=== PATIENT | female | born 1935 | race Caucasian/White ===

== ENCOUNTER 2020-02-13 15:26 | Emergency (ER) | payer MEDICARE, BC ==
[2020-02-13] MEDS ORDERED: Ketorolac 30 MG/ML SDV IM ONE (15:46)
[2020-02-13 15:47] VITALS: BP 159/73; PULSE 80
--- NOTE | 2020-02-13 15:50 | EDM.PDOC ---
ED HPI GENERAL MEDICAL PROBLEM - General Chief Complaint: Back Pain or Injury Stated Complaint: BACK PAIN Time Seen by Provider: 02/13/20 15:37 Source of Information: Reports: Patient History Limitations: Reports: No Limitations - History of Present Illness INITIAL COMMENTS - FREE TEXT/NARRATIVE: HISTORY AND PHYSICAL: History of present illness: Patient is an 84-year-old female who presents to the emergency room with complaints of left low back pain. She was sitting on a short stool while outside gardening when the stool broke resulting in her falling backward. She denies hitting her head or having any loss of consciousness. Since falling, she has had some muscular pain to the left low back region. "I can get up and walk around with no problem it is just when I am engaging my back muscles that it hurts". Patient denies any fever, chills, headache, change in vision, syncope or near syncope. Denies any chest pain, back pain, shortness of breath or cough. Denies any abdominal pain, nausea, vomiting, diarrhea, constipation or dysuria. Has not noted any blood in urine or stool. Patient has been eating and drinking appropriately. Review of systems: As per history of present illness and below otherwise all systems reviewed and negative. Past medical history: As per history of present illness and as reviewed below otherwise noncontributory. Surgical history: As per history of present illness and as reviewed below otherwise noncontributory. Social history: See social history for further information Family history: As per history of present illness and as reviewed below otherwise noncontributory. Physical exam: General: Well-developed and well-nourished 84-year-old female. Alert and oriented. Nontoxic-appearing and in no acute distress. HEENT: Atraumatic, normocephalic, pupils equal and reactive bilaterally, negative for conjunctival pallor or scleral icterus, mucous membranes moist, TMs normal bilaterally, throat clear, neck supple, nontender, trachea midline. No drooling or trismus noted. No meningeal signs. No hot potato voice noted. Lungs: Clear to auscultation, breath sounds equal bilaterally, chest nontender. Heart: S1S2, regular rate and rhythm without overt murmur Abdomen: Soft, nondistended, nontender. Negative for masses or hepatosplenomegaly. Negative for costovertebral tenderness. Pelvis: Stable nontender. C-spine/Back: No pinpoint vertebral tenderness upon palpation. No crepitus, step -offs or obvious deformities. Patient is ambulatory into the emergency room without difficulty or deficit. Paraspinous muscular pain to left lumbar region. She is able to rock back on heels and walk on toes. Denies any urinary or fecal incontinence. Denies any numbness, tingling or saddle paresthesia. Skin: Intact, warm, dry. No lesions or rashes noted. Extremities: Atraumatic, moves all extremities per self without difficulty or deficits, negative for cords or calf pain. Neurovascular unremarkable. Neuro: Awake, alert, oriented. Cranial nerves II through XII unremarkable. Cerebellum unremarkable. Motor and sensory unremarkable throughout. Exam nonfocal. Notes: X-ray shows mild degenerative changes and minimal scoliosis. She does feel improved after the injections. Medication and Supportive care measures were reviewed and discussed. Signs and symptoms that would prompt her to return to the emergency room were reviewed and discussed. She voices understanding and is agreeable to plan of care. Denies any further questions or concerns at this time. Diagnostics: Lumbar x-ray Therapeutics: Toradol, Norflex Prescription: Flexeril Impression: Fall Lumbago Plan: 1. The medication you received today does cause drowsiness, so do not drive for the remaining day 2. When resting please lay on a flat firm surface. Limit your immobility to prevent muscle stiffness. Get up to ambulate/move around/gentle stretching multiple times throughout the day. May alternate heat and ice to the painful areas 3. Tylenol and/or Ibuprofen as needed for back pain. Otherwise take the prescribed Flexeril as directed. Flexeril as a muscle relaxant, this medication may cause drowsiness a do not take it will driving her needing to be functioning outside of the house. 4. Please follow-up with your primary care provider as we discussed. Return to the ED as needed and as discussed. Definitive disposition and diagnosis as appropriate pending reevaluation and review of above. lower back Pain Score (Numeric/FACES): 8 - Related Data Allergies Allergy/AdvReac Type Severity Reaction Status Date / Time No Known Allergies Allergy Verified 02/13/20 15:46 Home Meds: Home Meds Levothyroxine [Levothroid] 137 mcg PO BEDTIME 01/04/14 [History] Tetrahydroz/Dext 70/Peg 400/Pv [Eye Drops] 15 ml EYEBOTH BEDTIME 01/04/14 [ History] Carboxymethylcellulos/Glycerin [Refresh Optive Eye Drops] 1 drop EYEBOTH QAM 02/08 [History] Aspirin 1 tab PO DAILY 12/18/15 [History] atorvaSTATin [Lipitor] 12/18/15 [History] Calcium Carb/Vitamin D3/Vit K1 [Calcium + D Soft Chewable Tab] 1 tab PO BEDTIME 02/13/20 [History] Lutein/Minerals/Vit A,C & E [Ocuvite] 1 tab PO DAILY 02/13/20 [History] Multivitamin [Multivitamins] 1 tab PO DAILY 02/13/20 [History] Past Medical History Cardiovascular History: Reports: High Cholesterol Endocrine/Metabolic History: Reports: Hypothyroidism Social & Family History - Family History Family Medical History: Noncontributory ED ROS GENERAL - Review of Systems Review Of Systems: Comprehensive ROS is negative, except as noted in HPI. ED EXAM,LOWER BACK PAIN/INJURY - Physical Exam Exam: See Below (See dictation) Course - Vital Signs Last Recorded V/S: Last Vital Signs Temp 97.7 F 02/13/20 15:42 Pulse 80 02/13/20 15:42 Resp 16 02/13/20 15:42 BP 159/73 H 02/13/20 15:42 Pulse Ox 93 L 02/13/20 15:42 - Orders/Labs/Meds Orders: Active Orders 24 hr Category Date Time Status UA RFX EFRAIN AND CULT IF INDIC [URIN] Stat Lab 02/13/20 15:38 Ordered Meds: Medications Discontinued Medications Generic Name Dose Route Start Last Admin Trade Name Fran PRN Reason Stop Dose Admin Ketorolac Tromethamine 30 mg 02/13/20 15:46 02/13/20 15:57 Toradol IM 02/13/20 15:47 30 mg ONETIME ONE Administration Orphenadrine Citrate 60 mg 02/13/20 15:46 02/13/20 15:58 Norflex IM 02/13/20 15:47 60 mg ONETIME ONE Administration Departure - Departure Time of Disposition: 17:00 Disposition: Home, Self-Care 01 Clinical Impression: Fall Qualifiers: Encounter type: initial encounter Qualified Code(s): W19.XXXA - Unspecified fall, initial encounter Lumbago Qualifiers: Chronicity: acute Back pain laterality: left Sciatica presence: without sciatica Qualified Code(s): M54.5 - Low back pain - Discharge Information Instructions: Acute Back Pain, Adult Referrals: Mason uQezada MD [Primary Care Provider] - Forms: ED Department Discharge Additional Instructions: The following information is given to patients seen in the emergency department who are being discharged to home. This information is to outline your options for follow-up care. We provide all patients seen in our emergency department with a follow-up referral. The need for follow-up, as well as the timing and circumstances, are variable depending upon the specifics of your emergency department visit. If you don't have a primary care physician on staff, we will provide you with a referral. We always advise you to contact your personal physician following an emergency department visit to inform them of the circumstance of the visit and for follow-up with them and/or the need for any referrals to a consulting specialist. The emergency department will also refer you to a specialist when appropriate. This referral assures that you have the opportunity for follow-up care with a specialist. All of these measure are taken in an effort to provide you with optimal care, which includes your follow-up. Under all circumstances we always encourage you to contact your private physician who remains a resource for coordinating your care. When calling for follow-up care, please make the office aware that this follow-up is from your recent emergency room visit. If for any reason you are refused follow-up, please contact the [facility] Emergency Department at and asked to speak to the emergency department charge nurse. [facility] [address] [place] [address] [id number] [address] [id number] 1. The medication you received today does cause drowsiness, so do not drive for the remaining day 2. When resting please lay on a flat firm surface. Limit your immobility to prevent muscle stiffness. Get up to ambulate/move around/gentle stretching multiple times throughout the day. May alternate heat and ice to the painful areas 3. Tylenol and/or Ibuprofen as needed for back pain. Otherwise take the prescribed Flexeril as directed. Flexeril as a muscle relaxant, this medication may cause drowsiness a do not take it will driving her needing to be functioning outside of the house. 4. Please follow-up with your primary care provider as we discussed. Return to the ED as needed and as discussed. Sepsis Event Note - Evaluation Sepsis Screening Result: No Definite Risk - Focused Exam Vital Signs: Vital Signs Temp Pulse Resp BP Pulse Ox 02/13/20 15:42 97.7 F 80 16 159/73 H 93 L Date Exam was Performed: 02/13/20 Time Exam was Performed: 16:58 - My Orders Last 24 Hours: My Active Orders 02/13/20 15:38 UA RFX EFRAIN AND CULT IF INDIC [URIN] Stat - Assessment/Plan Last 24 Hours: My Active Orders 02/13/20 15:38 UA RFX EFRAIN AND CULT IF INDIC [URIN] Stat
--- NOTE | 2020-02-13 16:53 | CR ---
Lumbar spine: AP, lateral and coned-down lateral view centered to the lumbosacral junction were obtained. Mild disc space narrowing at T11-12 and at L1-2. Mild disc space narrowing is noted at L3-4. Vertebral body heights are maintained. Scattered endplate osteophytes are noted. Minimal scoliosis is noted. Sacroiliac joints are within normal limits. Mild vascular calcification is noted. Impression: 1. Mild degenerative change and minimal scoliosis. Diagnostic code #2 This report was dictated in MDT
== END 2020-02-13 17:16 | disposition home or self-care (01) ==
LOC: MW.ED 15:26
DX: M54.5 Low back pain (principal); E78.00 Pure hypercholesterolemia, unspecified; E03.9 Hypothyroidism, unspecified; Z79.899 Other long term (current) drug therapy; W17.89XA Other fall from one level to another, initial encounter; Y93.H2 Activity, gardening and landscaping
CPT/HCPCS: 72100; 96372; 99283; J1885; J2360

== ENCOUNTER 2021-03-11 05:29 | Emergency (ER) | payer MEDICARE, BC ==
--- NOTE | 2021-03-11 05:56 | EDM.PDOC ---
ED HPI GENERAL MEDICAL PROBLEM - General Chief Complaint: Headache Stated Complaint: EXTREME PAIN ON LEFT SIDE OF HEAD Time Seen by Provider: 03/11/21 05:54 Source of Information: Reports: Patient History Limitations: Reports: No Limitations - History of Present Illness INITIAL COMMENTS - FREE TEXT/NARRATIVE: 85-year-old female past medical history TIA, chronic lower back pain, hypothyroidism presents for headache. Patient first noted symptoms yesterday and had difficulty sleeping. She states the pain is on the left lateral aspect of her head above her ear without radiation. She denies any associated dizziness, one-sided body weakness, slurred speech, facial droop. No nausea or vomiting. The pain seems to come in paroxysms lasting for a few seconds and were initially occurring several times an hour but after taking Motrin this morning seem to be decreasing in severity and frequency. No vision changes, no fevers - Related Data Allergies Allergy/AdvReac Type Severity Reaction Status Date / Time No Known Allergies Allergy Verified 02/13/20 15:46 Home Meds: Home Meds Levothyroxine [Levothroid] 137 mcg PO BEDTIME 01/04/14 [History] Tetrahydroz/Dext 70/Peg 400/Pv [Eye Drops] 15 ml EYEBOTH BEDTIME 01/04/14 [History] Carboxymethylcellulos/Glycerin [Refresh Optive Eye Drops] 1 drop EYEBOTH QAM 01/30/14 [History] Aspirin 1 tab PO DAILY 12/18/15 [History] atorvaSTATin [Lipitor] 12/18/15 [History] Calcium Carb/Vitamin D3/Vit K1 [Calcium + D Soft Chewable Tab] 1 tab PO BEDTIME 02/13/20 [History] Cyclobenzaprine [Flexeril] 5 mg PO TID PRN #15 tab 02/13/20 [Rx] Lutein/Minerals/Vit A,C & E [Ocuvite] 1 tab PO DAILY 02/13/20 [History] Multivitamin [Multivitamins] 1 tab PO DAILY 02/13/20 [History] Past Medical History Cardiovascular History: Reports: High Cholesterol Genitourinary History: Reports: Urinary Incontinence 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 ED EXAM, GENERAL - Physical Exam Exam: See Below Exam Limited By: No Limitations General Appearance: Alert, WD/WN, No Apparent Distress Eye Exam: Bilateral Eye: EOMI, PERRL Ears: Normal External Exam, Normal Canal, Hearing Grossly Normal, Normal TMs Nose: Normal Inspection Throat/Mouth: Normal Voice, No Airway Compromise Head: Atraumatic, Normocephalic Neck: Normal Inspection Respiratory/Chest: No Respiratory Distress, Lungs Clear, Normal Breath Sounds, No Accessory Muscle Use Cardiovascular: Normal Peripheral Pulses, Regular Rate, Rhythm Extremities: Normal Inspection Neurological: Alert, Oriented, CN II-XII Intact, Normal Cognition, Normal Gait, No Motor/Sensory Deficits Psychiatric: Normal Affect, Normal Mood Skin Exam: Warm, Dry, Intact, Normal Color Course - Vital Signs Last Recorded V/S: Last Vital Signs Temp 97.4 F 03/11/21 05:48 Pulse 72 03/11/21 05:48 Resp 20 03/11/21 05:48 BP 152/70 H 03/11/21 05:48 Pulse Ox 100 03/11/21 05:48 - Orders/Labs/Meds Orders: Active Orders 24 hr Category Date Time Status Sodium Chloride 0.9% [Saline Flush] Med 03/11/21 06:02 Active 10 ml FLUSH ASDIRECTED PRN Sodium Chloride 0.9% [Saline Flush] Med 03/11/21 06:02 Active 2.5 ml FLUSH ASDIRECTED PRN Saline Lock Insert [OM.PC] Stat Oth 03/11/21 06:03 Ordered Medication Orders Sodium Chloride (Sodium Chloride 0.9% 10 Ml Syringe) 10 ml FLUSH ASDIRECTED PRN PRN Reason: Keep Vein Open Sodium Chloride (Sodium Chloride 0.9% 2.5 Ml Syringe) 2.5 ml FLUSH ASDIRECTED PRN PRN Reason: Keep Vein Open Labs: Laboratory Tests 03/11/21 03/11/21 Range/Units 06:14 06:14 WBC 8.01 (4.0-11.0) K/uL RBC 4.37 (4.30-5.90) M/uL Hgb 14.2 (12.0-16.0) g/dL Hct 42.9 (36.0-46.0) % MCV 98.2 H (80.0-98.0) fL MCH 32.5 H (27.0-32.0) pg MCHC 33.1 (31.0-37.0) g/dL RDW Std Deviation 47.6 (28.0-62.0) fl RDW Coeff of Mayuri 13 (11.0-15.0) % Plt Count 202 (150-400) K/uL MPV 10.80 (7.40-12.00) fL Neut % (Auto) 39.4 L (48.0-80.0) % Lymph % (Auto) 50.3 H (16.0-40.0) % Glenn % (Auto) 7.7 (0.0-15.0) % Eos % (Auto) 2.2 (0.0-7.0) % Baso % (Auto) 0.4 (0.0-1.5) % Neut # (Auto) 3.2 (1.4-5.7) K/uL Lymph # (Auto) 4.0 H (0.6-2.4) K/uL Glenn # (Auto) 0.6 (0.0-0.8) K/uL Eos # (Auto) 0.2 (0.0-0.7) K/uL Baso # (Auto) 0.0 (0.0-0.1) K/uL Nucleated RBC % 0.0 /100WBC Nucleated RBCs # 0 K/uL Sodium 141 (136-145) mmol/L Potassium 4.3 (3.5-5.1) mmol/L Chloride 106 (98-107) mmol/L Carbon Dioxide 27.0 (21.0-32.0) mmol/L BUN 16 (7.0-18.0) mg/dL Creatinine 0.8 (0.6-1.0) mg/dL Est Cr Clr Drug Dosing TNP Estimated GFR (MDRD) > 60.0 ml/min Glucose 121 H (74-106) mg/dL Calcium 8.6 (8.5-10.1) mg/dL Total Bilirubin 0.4 (0.2-1.0) mg/dL AST 21 (15-37) IU/L ALT 32 (14-63) IU/L Alkaline Phosphatase 71 (46-116) U/L C-Reactive Protein <0.20 (0.00-0.90) mg/dL Total Protein 7.2 (6.4-8.2) g/dL Albumin 3.7 (3.4-5.0) g/dL Globulin 3.5 (2.6-4.0) g/dL Albumin/Globulin Ratio 1.1 (0.9-1.6) Meds: Medications Generic Name Dose Route Start Last Admin Trade Name Fran PRN Reason Stop Dose Admin Sodium Chloride 10 ml 03/11/21 06:02 Sodium Chloride 0.9% 10 Ml Syringe FLUSH ASDIRECTED PRN Keep Vein Open Sodium Chloride 2.5 ml 03/11/21 06:02 Sodium Chloride 0.9% 2.5 Ml Syringe FLUSH ASDIRECTED PRN Keep Vein Open Discontinued Medications Generic Name Dose Route Start Last Admin Trade Name Freq PRN Reason Stop Dose Admin Acetaminophen/Butalbital/Caffeine 1 tab 03/11/21 06:03 03/11/21 06:08 Acetaminophen/Butalbital/Caffeine 325-50-40 Mg Tab PO 03/11/21 06:04 1 tab ONETIME ONE Administration Diphenhydramine HCl 50 mg 03/11/21 06:02 03/11/21 06:11 Diphenhydramine 50 Mg/Ml Sdv IVPUSH 03/11/21 06:03 Not Given ONETIME ONE Diphenhydramine HCl 25 mg 03/11/21 06:04 03/11/21 06:12 Diphenhydramine 50 Mg/Ml Sdv IVPUSH 03/11/21 06:05 25 mg ONETIME ONE Administration Sodium Chloride 500 mls @ 999 mls/hr 03/11/21 06:02 03/11/21 06:13 Normal Saline IV 03/11/21 06:32 999 mls/hr .Bolus ONE Administration Metoclopramide HCl 10 mg 03/11/21 06:02 03/11/21 06:09 Metoclopramide 10 Mg/2 Ml Sdv IVPUSH 03/11/21 06:03 10 mg ONETIME ONE Administration - Re-Assessments/Exams Free Text/Narrative Re-Assessment/Exam: 03/11/21 06:09 We will get basic labs including CRP. We will get a head CT. Will treat symptomatically with Reglan, Benadryl, Fioricet, IV fluid bolus. 03/11/21 06:53 CT imaging unremarkable. CRP is negative lowering suspicion for temporal arteritis. Will discharge patient with headache medication and refer her for neurology. Departure - Departure Time of Disposition: 06:54 Disposition: Home, Self-Care 01 Condition: Good Clinical Impression: Headache Qualifiers: Headache type: unspecified Headache chronicity pattern: acute headache Intractability: not intractable Qualified Code(s): R51.9 - Headache, unspecified - Discharge Information Instructions: General Headache Without Cause Referrals: Mason Quezada MD [Primary Care Provider] - Forms: ED Department Discharge Additional Instructions: Your labs were unremarkable. Your head CT was unremarkable. Your CRP testing which is a screening tool for temporal arteritis was negative. And really like you to follow-up with your primary care physician and consider follow-up with a neurologist if symptoms are persistent or recurrent. Information for neurology is provided below. If your headache becomes intolerable, you have changes in your vision, you have confusion or difficulty with word finding, or one-sided body weakness then you should come back to the emergency department for reassessment immediately. If you start to notice a rash in or around your ear or tracking up the side of your face then you should also come back for reassessment as we cannot rule out an early shingles infection today. [facility] Neurology Professional [address], [address] [place] [id number] The following information is given to patients seen in the emergency department who are being discharged to home. This information is to outline your options for follow-up care. We provide all patients seen in our emergency department with a follow-up referral. The need for follow-up, as well as the timing and circumstances, are variable depending upon the specifics of your emergency department visit. If you don't have a primary care physician on staff, we will provide you with a referral. We always advise you to contact your personal physician following an emergency department visit to inform them of the circumstance of the visit and for follow-up with them and/or the need for any referrals to a consulting specialist. The emergency department will also refer you to a specialist when appropriate. This referral assures that you have the opportunity for follow-up care with a specialist. All of these measure are taken in an effort to provide you with optimal care, which includes your follow-up. Under all circumstances we always encourage you to contact your private physician who remains a resource for coordinating your care. When calling for follow-up care, please make the office aware that this follow-up is from your recent emergency room visit. If for any reason you are refused follow-up, please contact the [facility] Emergency Department at and asked to speak to the emergency department charge nurse. Please follow up with your primary care physician. If you do not have a primary care physician, see below: [facility] Primary [facility] [address] [place] [id number] [facility] [address] [place] [address] [facility] [address] [place] [id number] Sepsis Event Note (ED) - Evaluation Sepsis Screening Result: No Definite Risk - Focused Exam Vital Signs: Vital Signs Temp Pulse Resp BP Pulse Ox 03/11/21 05:48 97.4 F 72 20 152/70 H 100 - My Orders Last 24 Hours: My Active Orders 03/11/21 06:02 Sodium Chloride 0.9% [Saline Flush] 10 ml FLUSH ASDIRECTED PRN Sodium Chloride 0.9% [Saline Flush] 2.5 ml FLUSH ASDIRECTED PRN 03/11/21 06:03 Saline Lock Insert [OM.PC] Stat - Assessment/Plan Last 24 Hours: My Active Orders 03/11/21 06:02 Sodium Chloride 0.9% [Saline Flush] 10 ml FLUSH ASDIRECTED PRN Sodium Chloride 0.9% [Saline Flush] 2.5 ml FLUSH ASDIRECTED PRN 03/11/21 06:03 Saline Lock Insert [OM.PC] Stat
[2021-03-11] MEDS ORDERED: Metoclopramide 10 MG/2 ML SDV IVPUSH ONE (06:02)
[2021-03-11] MEDS ORDERED: Sodium Chloride 0.9% 2.5 ML Syringe FLUSH PRN (06:02)
[2021-03-11] MEDS ORDERED: Sodium Chloride 0.9% 500 ML IV ONE (06:02)
[2021-03-11] MEDS ORDERED: Sodium Chloride 0.9% 10 ML Syringe FLUSH PRN (06:02)
[2021-03-11] MEDS ORDERED: diphenhydrAMINE 50 MG/ML SDV IVPUSH ONE ×2 (06:02→06:04)
[2021-03-11] MEDS ORDERED: Acetaminophen/Butalbital/Caffeine 325-50-40 MG Tab PO ONE (06:03)
--- NOTE | 2021-03-11 06:38 | CT ---
INDICATION: Left-sided headache TECHNIQUE: Head CT without contrast. COMPARISON: January 31, 2014 FINDINGS: CSF spaces: Within normal limits for age. Brain parenchyma and extra-axial spaces: There are nonspecific low attenuation white matter changes consistent with chronic microvascular disease. No sign of mass, hemorrhage, or midline shift. Skull base and calvarium: The visualized paranasal sinuses and mastoid air cells demonstrate no acute or significant findings. The visualized orbits are grossly unremarkable. No skull fractures. IMPRESSION: No acute findings and no significant changes from the prior exam. No specific finding to explain left-sided headache. Please note that all CT scans at this facility use dose modulation, iterative reconstruction, and/or weight-based dosing when appropriate to reduce radiation dose to as low as reasonably achievable. Dictated by Felice Cotton MD @ 03/11/2021 6:36:[address] Felice Cotton @ Mar 11 2021 6:36AM
[2021-03-11 06:40] LABS: BLOOD UREA NITROGEN,BUN 16 mg/dL (7.0-18.0); CHLORIDE,CL 106 mmol/L (98-107); GLUCOSE RANDOM 121 mg/dL (74-106); POTASSIUM,K 4.3 mmol/L (3.5-5.1); SODIUM,NA 141 mmol/L (136-145)
[2021-03-11 07:03] VITALS: BP 166/81; PULSE 66
== END 2021-03-11 07:05 | disposition home or self-care (01) ==
LOC: MW.ED 05:29
DX: R51.9 Headache, unspecified (principal); E78.00 Pure hypercholesterolemia, unspecified; Z79.82 Long term (current) use of aspirin; E03.9 Hypothyroidism, unspecified; Z79.899 Other long term (current) drug therapy
CPT/HCPCS: 36415; 70450; 80053; 85025; 86140; 96374; 96375; 99284; A9270; J1200; J2765; J7030; 99283

== ENCOUNTER 2023-04-19 13:24 | Emergency (ER) | payer MEDICARE, BC ==
[2023-04-19] MEDS ORDERED: Lidocaine 4% 1 each Patch TOP SCH (15:30)
[2023-04-19 17:41] VITALS: BP 105/71; PULSE 73
== END 2023-04-19 17:34 | disposition home or self-care (01) ==
LOC: MW.ED 13:24
DX: S93.401A Sprain of unspecified ligament of right ankle, initial encounter (principal); E78.00 Pure hypercholesterolemia, unspecified; J44.9 Chronic obstructive pulmonary disease, unspecified; E03.9 Hypothyroidism, unspecified; Z79.899 Other long term (current) drug therapy; Z79.82 Long term (current) use of aspirin; X50.1XXA Overexertion from prolonged static or awkward postures, initial encounter
CPT/HCPCS: 73610; 73630; 99283; A9270

== ENCOUNTER 2023-05-31 09:07 | Emergency (ER) | payer MEDICARE, BC ==
[2023-05-31] MEDS ORDERED: Ondansetron 4 MG/2 ML SDV ONE (09:35)
[2023-05-31] MEDS ORDERED: Ondansetron 4 MG/2 ML SDV IVPUSH ONE (09:35)
[2023-05-31] MEDS ORDERED: propofoL 100 ML ONE (09:42)
[2023-05-31] MEDS ORDERED: fentaNYL 50 MCG/ML SDV IVPUSH PRN (09:52)
[2023-05-31] MEDS: propofoL 100 ML IV SCH ×3 (09:53→14:03)
[2023-05-31] MEDS ORDERED: Etomidate 2 MG/ML 10 ML SDV IVPUSH ONE (09:53)
[2023-05-31] MEDS ORDERED: Rocuronium 50 MG/5 ML Vial IV ONE (09:54)
[2023-05-31] MEDS ORDERED: niCARdipine/Normal Saline 20 MG/200 ML BAG IV SCH (10:45)
[2023-05-31] MEDS ORDERED: Iopamidol 755 MG/ML 500 ML Multipack Bottle IVPUSH STA (10:51)
[2023-05-31] MEDS ORDERED: Propofol 200 MG/20 ML SDV IVPUSH ONE ×4 (11:00→12:50)
[2023-05-31 11:06] LABS: APPEARANCE,URINE CLEAR; BILIRUBIN,URINE NEGATIVE (NEGATIVE); COLOR,URINE STRAW; GLUCOSE,URINE 100 mg/dL (NEGATIVE); KETONES,URINE NEGATIVE (NEGATIVE); LEUKOCYTE ESTERASE,URINE NEGATIVE (NEGATIVE); NITRITE,URINE NEGATIVE (NEGATIVE); OCCULT BLOOD,URINE NEGATIVE (NEGATIVE); PROTEIN,URINE 100 mg/dL (NEGATIVE); UROBILINOGEN,URINE 0.2 EU/dL (<2.0)
[2023-05-31] MEDS ORDERED: fentaNYL 50 MCG/ML SDV IVPUSH ONE ×3 (11:20→12:42)
[2023-05-31] MEDS ORDERED: fentaNYL 50 MCG/ML SDV ONE ×2 (11:21→11:49)
[2023-05-31 11:24] LABS: HEMATOCRIT 41.8 % (36.0-46.0); HEMOGLOBIN 13.9 g/dL (12.0-16.0); MEAN CORPUSCULAR HEMOGLOBIN 32.2 pg (27.0-32.0); MEAN CORPUSCULAR HGB CONC 33.3 g/dL (31.0-37.0); MEAN CORPUSCULAR VOLUME 96.8 fL (80.0-98.0); NRBC ABSOLUTE 0 K/uL; PLATELET COUNT,PLT 200 K/uL (150-400); RED BLOOD CELL COUNT 4.32 M/uL (4.30-5.90); WHITE BLOOD CELL COUNT,WBC 10.12 K/uL (4.0-11.0)
[2023-05-31 11:37] LABS: INR 1.02 (0.86-1.11); PTT,PARTIAL THROMBOPLSTIN TIME 23.4 SEC (23.9-30.7)
[2023-05-31 11:41] LABS: BACTERIA,URINE NOT SEEN (NEGATIVE); EPITHELIAL CELLS,URINE NOT SEEN (NONE-FEW); RBC,URINE 0-1 (0-2/HPF); WBC,URINE 0-1 (0-5/HPF)
[2023-05-31] MEDS ORDERED: Norepinephrine Bit/D5W Premix 250 ML IV SCH (11:45)
[2023-05-31 11:46] LABS: A/G RATIO 1.2 (0.9-1.6); ALBUMIN 3.7 g/dL (3.4-5.0); BILIRUBIN TOTAL 0.7 mg/dL (0.2-1.0); CALCIUM 8.8 mg/dL (8.5-10.1); CARBON DIOXIDE,CO2 24.6 mmol/L (21.0-32.0); CREATININE 0.7 mg/dL (0.6-1.0); POTASSIUM,K 3.4 mmol/L (3.5-5.1); PROTEIN TOTAL,TP 6.9 g/dL (6.4-8.2)
[2023-05-31] MEDS ORDERED: Midazolam 1 MG/ML 2 ML SDV ONE (11:49)
[2023-05-31] MEDS ORDERED: Norepinephrine Bit/D5W Premix 250 ML ONE (11:55)
[2023-05-31] MEDS ORDERED: Midazolam 1 MG/ML 2 ML SDV IVPUSH ONE (11:59)
[2023-05-31 12:13] LABS: BASOPHILS ABSOLUTE MAN 0.1 (0.0-0.1); BASOPHILS PERCENT MAN 1 % (0.0-1.5); EOSINOPHILS ABSOLUTE MAN 0.3 (0.0-0.7); EOSINOPHILS PERCENT MAN 3 % (0.0-7.0); LYMPHOCYTES ABSOLUTE MAN 5.9 (0.6-2.4); LYMPHOCYTES PERCENT MAN 58 % (16.0-40.0); MONOCYTES ABSOLUTE MAN 0.6 (0.0-0.8); MONOCYTES PERCENT MAN 6 % (0.0-15.0); REACTIVE LYMPHOCYTES FEW; SEG NEUTROPHILS ABSOLUTE MAN 3.2 (1.4-5.7); SEG NEUTROPHILS PERCENT MAN 32 % (48.0-80.0); SMUDGE CELLS FEW
[2023-05-31 13:48] VITALS: BP 138/56; PULSE 86
== END 2023-05-31 14:00 ==
LOC: MW.ED 09:07
DX: I60.9 Nontraumatic subarachnoid hemorrhage, unspecified (principal); E78.00 Pure hypercholesterolemia, unspecified; J44.9 Chronic obstructive pulmonary disease, unspecified; E03.9 Hypothyroidism, unspecified; I10 Essential (primary) hypertension; Z79.82 Long term (current) use of aspirin; Z79.899 Other long term (current) drug therapy; Z20.822 Contact with and (suspected) exposure to COVID-19
CPT/HCPCS: 31500; 36415; 70450; 70496; 70498; 71045; 72125; 80053; 81001; 84484; 85025; 85610; 85730; 93005; 96365; 96366; 96368; 96375; 96376; 99291; 99292; J2250; J2405; J2704; J3010; Q9967; U0002; 93010; J3490

== ENCOUNTER 2023-07-19 13:28 | Emergency (ER) | payer MEDICARE, BC ==
[2023-07-19] MEDS ORDERED: Sodium Chloride 0.9% 10 ML Syringe FLUSH PRN (13:35)
[2023-07-19] MEDS ORDERED: Sodium Chloride 0.9% 2.5 ML Syringe FLUSH PRN (13:35)
[2023-07-19 14:21] LABS: BASE EXCESS VENOUS 2.3 (-2.0-3.0); BICARBONATE,VENOUS 28 mEq/L (23-28); PCO2 VENOUS 46 mmHG (41-51); PH,VENOUS 7.39 (7.31-7.41)
[2023-07-19 14:22] LABS: BASOPHILS ABSOLUTE AUTO 0.03 K/uL (0.00-0.20); BASOPHILS PERCENT AUTO 0.3 % (0.0-1.0); EOSINOPHILS ABSOLUTE AUTO 0.06 K/uL (0.00-0.45); EOSINOPHILS PERCENT AUTO 0.7 % (0.0-6.0); HEMATOCRIT 33.9 % (37.0-47.0); HEMOGLOBIN 11.5 g/dL (12.0-16.0); IMMATURE GRAN ABSOLUTE AUTO 0.02 K/uL (0.00-0.05); IMMATURE GRAN PERCENT AUTO 0.2 % (0.0-0.4); LYMPHOCYTES ABSOLUTE AUTO 3.39 K/uL (1.00-4.80); LYMPHOCYTES PERCENT AUTO 37.1 % (24.0-44.0); MEAN CORPUSCULAR HEMOGLOBIN 32.9 pg (28.0-32.0); MEAN CORPUSCULAR HGB CONC 33.9 g/dL (32.0-36.0); MEAN CORPUSCULAR VOLUME 96.9 fL (83.0-99.0); MEAN PLATELET VOLUME 9.7 fL (9.4-12.3); MONOCYTES ABSOLUTE AUTO 0.75 K/uL (0.00-0.80); MONOCYTES PERCENT AUTO 8.2 % (0.0-8.0); NEUTROPHILS ABSOLUTE AUTO 4.89 K/uL (1.80-7.70); NEUTROPHILS PERCENT AUTO 53.5 % (41.0-71.0); PLATELET COUNT,PLT 204 K/uL (150-400); PO2 VENOUS < 30 mmHG; WHITE BLOOD CELL COUNT,WBC 9.14 K/uL (3.9-11.3)
[2023-07-19 14:39] LABS: CORONAVIRUS COVID-19 NAA NEGATIVE (NEGATIVE); INFLUENZA A NAA NEGATIVE (NEGATIVE); INFLUENZA B NAA NEGATIVE (NEGATIVE)
[2023-07-19 14:44] LABS: A/G RATIO 0.9 (0.9-1.6); ALANINE AMINOTRANSFERASE,ALT 39 IU/L (14-63); ALKALINE PHOSPHATASE 104 U/L (46-116); ASPARTATE AMNIOTRANSFERASE,AST 25 IU/L (15-37); BILIRUBIN TOTAL 0.8 mg/dL (0.2-1.0); BLOOD UREA NITROGEN,BUN 11 mg/dL (7.0-18.0); CALCIUM 8.8 mg/dL (8.5-10.1); CARBON DIOXIDE,CO2 28.1 mmol/L (21.0-32.0); CHLORIDE,CL 105 mmol/L (98-107); CREATININE 0.7 mg/dL (0.6-1.0); GLUCOSE RANDOM 201 mg/dL (74-106); POTASSIUM,K 3.3 mmol/L (3.5-5.1); PROTEIN TOTAL,TP 6.4 g/dL (6.4-8.2); SODIUM,NA 141 mmol/L (136-145)
[2023-07-19 14:51] LABS: ESTIMATED GFR 84 mL/min (>60)
[2023-07-19] MEDS ORDERED: Iopamidol 755 MG/ML 500 ML Multipack Bottle IVPUSH STA (18:07)
[2023-07-19 20:41] LABS: APPEARANCE,URINE SLT CLOUDY; BILIRUBIN,URINE NEGATIVE (NEGATIVE); COLOR,URINE YELLOW; GLUCOSE,URINE NEGATIVE (NEGATIVE); KETONES,URINE NEGATIVE (NEGATIVE); LEUKOCYTE ESTERASE,URINE SMALL (NEGATIVE); NITRITE,URINE POSITIVE (NEGATIVE); OCCULT BLOOD,URINE NEGATIVE (NEGATIVE); PROTEIN,URINE NEGATIVE (NEGATIVE); UROBILINOGEN,URINE 0.2 EU/dL (<2.0)
[2023-07-19] MEDS ORDERED: Heparin Sodium/0.45% NaCl 500 ML IV SCH (20:45)
[2023-07-19] MEDS ORDERED: Heparin Sodium 5,000 Units/ML Vial IVPUSH STA (20:45)
[2023-07-19 21:03] VITALS: BP 132/61; PULSE 96
[2023-07-19 21:09] LABS: BACTERIA,URINE 2+ (NEGATIVE); CALCIUM OXALATE CRYSTALS,URINE OCCASIONAL (NEGATIVE); EPITHELIAL CELLS,URINE OCCASIONAL (NONE-FEW); RBC,URINE 0-1 (0-2/HPF)
== END 2023-07-19 22:30 ==
LOC: MW.ED 13:28
DX: I26.99 Other pulmonary embolism without acute cor pulmonale (principal); I10 Essential (primary) hypertension; E78.00 Pure hypercholesterolemia, unspecified; J44.9 Chronic obstructive pulmonary disease, unspecified; E03.9 Hypothyroidism, unspecified; Z20.822 Contact with and (suspected) exposure to COVID-19; Z79.82 Long term (current) use of aspirin; Z79.899 Other long term (current) drug therapy
CPT/HCPCS: 0240U; 36415; 70450; 71045; 71275; 80053; 81001; 82803; 83880; 84484; 85025; 85379; 87086; 93005; 96365; 99285; J1644; J3490; Q9967; 87088; 87186; 93010; 99291

== ENCOUNTER 2023-11-06 04:36 | Emergency (ER) | payer MEDICARE, BC ==
[2023-11-06] MEDS: Sodium Chloride 0.9% 2.5 ML Syringe FLUSH PRN (04:52)
[2023-11-06] MEDS: Sodium Chloride 0.9% 10 ML Syringe FLUSH PRN (04:52)
[2023-11-06 05:00] LABS: BASOPHILS ABSOLUTE AUTO 0.03 K/uL (0.00-0.20); BASOPHILS PERCENT AUTO 0.4 % (0.0-1.0); EOSINOPHILS ABSOLUTE AUTO 0.16 K/uL (0.00-0.45); EOSINOPHILS PERCENT AUTO 2.1 % (0.0-6.0); HEMATOCRIT 38.7 % (37.0-47.0); HEMOGLOBIN 13.1 g/dL (12.0-16.0); IMMATURE GRAN ABSOLUTE AUTO 0.01 K/uL (0.00-0.05); IMMATURE GRAN PERCENT AUTO 0.1 % (0.0-0.4); LYMPHOCYTES ABSOLUTE AUTO 4.02 K/uL (1.00-4.80); LYMPHOCYTES PERCENT AUTO 53.5 % (24.0-44.0); MEAN CORPUSCULAR HEMOGLOBIN 31.3 pg (28.0-32.0); MEAN CORPUSCULAR HGB CONC 33.9 g/dL (32.0-36.0); MEAN CORPUSCULAR VOLUME 92.4 fL (83.0-99.0); MEAN PLATELET VOLUME 10.6 fL (9.4-12.3); MONOCYTES ABSOLUTE AUTO 0.58 K/uL (0.00-0.80); MONOCYTES PERCENT AUTO 7.7 % (0.0-8.0); NEUTROPHILS ABSOLUTE AUTO 2.72 K/uL (1.80-7.70); NEUTROPHILS PERCENT AUTO 36.2 % (41.0-71.0); PLATELET COUNT,PLT 202 K/uL (150-400); RED BLOOD CELL COUNT 4.19 M/uL (4.10-5.30); WHITE BLOOD CELL COUNT,WBC 7.52 K/uL (3.9-11.3)
[2023-11-06 05:20] LABS: ALBUMIN 3.4 g/dL (3.4-5.0); BILIRUBIN TOTAL 0.4 mg/dL (0.2-1.0); CALCIUM 9.3 mg/dL (8.5-10.1); CARBON DIOXIDE,CO2 21.1 mmol/L (21.0-32.0); CREATININE 0.9 mg/dL (0.6-1.0); EST CRCL DRUG DOSING (CG) 41.23 mL/min; PROTEIN TOTAL,TP 6.7 g/dL (6.4-8.2)
[2023-11-06] MEDS: Meclizine 25 MG Tab PO ONE (06:44)
[2023-11-06 08:11] LABS: INR 1.07 (0.86-1.11)
[2023-11-06 08:36] LABS: APPEARANCE,URINE CLEAR; BILIRUBIN,URINE NEGATIVE (NEGATIVE); COLOR,URINE YELLOW; GLUCOSE,URINE NEGATIVE (NEGATIVE); KETONES,URINE NEGATIVE (NEGATIVE); LEUKOCYTE ESTERASE,URINE TRACE (NEGATIVE); NITRITE,URINE NEGATIVE (NEGATIVE); OCCULT BLOOD,URINE NEGATIVE (NEGATIVE); PROTEIN,URINE NEGATIVE (NEGATIVE); UROBILINOGEN,URINE 0.2 EU/dL (<2.0)
[2023-11-06 08:45] LABS: BACTERIA,URINE RARE (NEGATIVE); EPITHELIAL CELLS,URINE RARE (NONE-FEW); MUCUS,URINE LIGHT (NONE-MOD); RBC,URINE NONE SEEN (0-2/HPF); WBC,URINE 0-2 (0-5/HPF)
[2023-11-06] MEDS: Ondansetron 4 MG/2 ML SDV IVPUSH ONE (08:47)
[2023-11-06] MEDS: Sodium Chloride 0.9% 1,000 ML IV STA (08:48)
[2023-11-06] MEDS: Iopamidol 755 MG/ML 500 ML Multipack Bottle IVPUSH ONE (09:10)
[2023-11-06 13:36] VITALS: BP 148/75; PULSE 68
== END 2023-11-06 13:36 | disposition home or self-care (01) ==
LOC: MW.ED 04:36
DX: R42 Dizziness and giddiness (principal); I10 Essential (primary) hypertension; E78.00 Pure hypercholesterolemia, unspecified; J44.9 Chronic obstructive pulmonary disease, unspecified; Z79.899 Other long term (current) drug therapy; Z79.82 Long term (current) use of aspirin
CPT/HCPCS: 36415; 70450; 70496; 70498; 80053; 81001; 84484; 85025; 85610; 96374; 99284; A9270; J2405; J3490; J7030; Q9967; 93010

== ENCOUNTER 2023-11-10 14:48 | Emergency (ER) | payer MEDICARE, BC ==
[2023-11-10 16:17] LABS: APPEARANCE,URINE SLT CLOUDY; BILIRUBIN,URINE NEGATIVE (NEGATIVE); COLOR,URINE YELLOW; GLUCOSE,URINE NEGATIVE (NEGATIVE); KETONES,URINE NEGATIVE (NEGATIVE); LEUKOCYTE ESTERASE,URINE SMALL (NEGATIVE); NITRITE,URINE NEGATIVE (NEGATIVE); OCCULT BLOOD,URINE NEGATIVE (NEGATIVE); PH,URINE 6.5 (5.0-8.0); PROTEIN,URINE NEGATIVE (NEGATIVE); UROBILINOGEN,URINE 0.2 EU/dL (<2.0)
[2023-11-10 16:27] LABS: BASOPHILS ABSOLUTE AUTO 0.03 K/uL (0.00-0.20); BASOPHILS PERCENT AUTO 0.4 % (0.0-1.0); EOSINOPHILS ABSOLUTE AUTO 0.19 K/uL (0.00-0.45); EOSINOPHILS PERCENT AUTO 2.3 % (0.0-6.0); HEMATOCRIT 38.8 % (37.0-47.0); HEMOGLOBIN 12.9 g/dL (12.0-16.0); IMMATURE GRAN ABSOLUTE AUTO 0.01 K/uL (0.00-0.05); IMMATURE GRAN PERCENT AUTO 0.1 % (0.0-0.4); LYMPHOCYTES ABSOLUTE AUTO 3.59 K/uL (1.00-4.80); LYMPHOCYTES PERCENT AUTO 43.7 % (24.0-44.0); MEAN CORPUSCULAR HEMOGLOBIN 31.5 pg (28.0-32.0); MEAN CORPUSCULAR HGB CONC 33.2 g/dL (32.0-36.0); MEAN CORPUSCULAR VOLUME 94.6 fL (83.0-99.0); MEAN PLATELET VOLUME 10.3 fL (9.4-12.3); MONOCYTES ABSOLUTE AUTO 0.64 K/uL (0.00-0.80); MONOCYTES PERCENT AUTO 7.8 % (0.0-8.0); NEUTROPHILS ABSOLUTE AUTO 3.75 K/uL (1.80-7.70); NEUTROPHILS PERCENT AUTO 45.7 % (41.0-71.0); PLATELET COUNT,PLT 171 K/uL (150-400); WHITE BLOOD CELL COUNT,WBC 8.21 K/uL (3.9-11.3)
[2023-11-10 16:27] LABS: RBC,URINE 0-1 (0-2/HPF)
[2023-11-10 16:28] LABS: BACTERIA,URINE FEW (NEGATIVE); EPITHELIAL CELLS,URINE MANY (NONE-FEW); WBC,URINE 15-20 (0-5/HPF)
[2023-11-10] MEDS: Sodium Chloride 0.9% 1,000 ML IV ONE (16:44)
[2023-11-10] MEDS: Meclizine 25 MG Tab PO ONE (16:44)
[2023-11-10 17:10] LABS: ALBUMIN 3.4 g/dL (3.4-5.0); BILIRUBIN TOTAL 0.4 mg/dL (0.2-1.0); CALCIUM 9.2 mg/dL (8.5-10.1); CARBON DIOXIDE,CO2 24.9 mmol/L (21.0-32.0); CREATININE 0.8 mg/dL (0.6-1.0); EST CRCL DRUG DOSING (CG) 42.78 mL/min; POTASSIUM,K 3.8 mmol/L (3.5-5.1); PROTEIN TOTAL,TP 6.7 g/dL (6.4-8.2); TSH ULTRASENSITIVE 0.12 uIU/mL (0.36-3.74)
[2023-11-10 17:25] LABS: BILIRUBIN,URINE NEGATIVE (NEGATIVE); COLOR,URINE YELLOW; GLUCOSE,URINE NEGATIVE (NEGATIVE); KETONES,URINE NEGATIVE (NEGATIVE); LEUKOCYTE ESTERASE,URINE SMALL (NEGATIVE); NITRITE,URINE NEGATIVE (NEGATIVE); OCCULT BLOOD,URINE NEGATIVE (NEGATIVE); PH,URINE 6.5 (5.0-8.0); PROTEIN,URINE NEGATIVE (NEGATIVE); UROBILINOGEN,URINE 0.2 EU/dL (<2.0)
[2023-11-10 17:26] LABS: APPEARANCE,URINE SLT CLOUDY
[2023-11-10 17:31] LABS: T4 FREE 1.07 ng/dL (0.76-1.46)
[2023-11-10 17:42] LABS: CORONAVIRUS COVID-19 NAA NEGATIVE (NEGATIVE); INFLUENZA A NAA NEGATIVE (NEGATIVE); INFLUENZA B NAA NEGATIVE (NEGATIVE); RESPIRATORY SYNCYTIAL VIR NAA NEGATIVE (NEGATIVE)
[2023-11-10 18:17] LABS: BACTERIA,URINE FEW (NEGATIVE); EPITHELIAL CELLS,URINE FEW (NONE-FEW); RBC,URINE 0-1 (0-2/HPF)
[2023-11-10] MEDS: cefTRIAXone 1 GM in Sodium Chloride 0.9% 50 ML IV ONE (18:51)
[2023-11-10 20:29] VITALS: BP 125/73; PULSE 87
== END 2023-11-10 20:29 | disposition home or self-care (01) ==
LOC: MW.ED 14:48
DX: R42 Dizziness and giddiness (principal); R00.2 Palpitations; N39.0 Urinary tract infection, site not specified; I10 Essential (primary) hypertension; E78.00 Pure hypercholesterolemia, unspecified; J44.9 Chronic obstructive pulmonary disease, unspecified; Z79.82 Long term (current) use of aspirin; Z79.899 Other long term (current) drug therapy
CPT/HCPCS: 0241U; 36415; 71045; 80053; 81001; 84439; 84443; 84484; 85025; 87086; 93005; 93246; 96361; 96365; 99285; A9270; J0696; J3490; J7030; 93010; 99283

== ENCOUNTER 2024-08-19 11:40 | Emergency (ER) | payer MEDICARE, BC ==
[2024-08-19 12:37] LABS: BASOPHILS ABSOLUTE AUTO 0.03 K/uL (0.00-0.20); BASOPHILS PERCENT AUTO 0.4 % (0.0-1.0); EOSINOPHILS ABSOLUTE AUTO 0.09 K/uL (0.00-0.45); EOSINOPHILS PERCENT AUTO 1.1 % (0.0-6.0); HEMATOCRIT 40.6 % (37.0-47.0); HEMOGLOBIN 13.6 g/dL (12.0-16.0); IMMATURE GRAN ABSOLUTE AUTO 0.03 K/uL (0.00-0.05); IMMATURE GRAN PERCENT AUTO 0.4 % (0.0-0.4); LYMPHOCYTES ABSOLUTE AUTO 3.56 K/uL (1.00-4.80); LYMPHOCYTES PERCENT AUTO 44.2 % (24.0-44.0); MEAN CORPUSCULAR HEMOGLOBIN 32.3 pg (28.0-32.0); MEAN CORPUSCULAR HGB CONC 33.5 g/dL (32.0-36.0); MEAN CORPUSCULAR VOLUME 96.4 fL (83.0-99.0); MEAN PLATELET VOLUME 9.8 fL (9.4-12.3); MONOCYTES ABSOLUTE AUTO 0.76 K/uL (0.00-0.80); MONOCYTES PERCENT AUTO 9.4 % (0.0-8.0); NEUTROPHILS ABSOLUTE AUTO 3.59 K/uL (1.80-7.70); NEUTROPHILS PERCENT AUTO 44.5 % (41.0-71.0); PLATELET COUNT,PLT 235 K/uL (150-400); RED BLOOD CELL COUNT 4.21 M/uL (4.10-5.30); WHITE BLOOD CELL COUNT,WBC 8.06 K/uL (3.9-11.3)
[2024-08-19 12:38] LABS: APPEARANCE,URINE SLT CLOUDY; BILIRUBIN,URINE NEGATIVE (NEGATIVE); COLOR,URINE YELLOW; GLUCOSE,URINE NEGATIVE (NEGATIVE); KETONES,URINE NEGATIVE (NEGATIVE); LEUKOCYTE ESTERASE,URINE NEGATIVE (NEGATIVE); NITRITE,URINE POSITIVE (NEGATIVE); OCCULT BLOOD,URINE NEGATIVE (NEGATIVE); PROTEIN,URINE NEGATIVE (NEGATIVE); UROBILINOGEN,URINE 0.2 EU/dL (<2.0)
[2024-08-19 12:42] LABS: BACTERIA,URINE 3+ (NEGATIVE); MUCUS,URINE NOT SEEN (NONE-MOD); RBC,URINE 0-1 (0-2/HPF); SQUAMOUS EPITHELIAL CELLS,UR MANY; WBC,URINE 0-2 (0-5/HPF)
[2024-08-19 14:00] LABS: A/G RATIO 1.1 (0.9-1.6); ALANINE AMINOTRANSFERASE,ALT 31 IU/L (14-63); ALBUMIN 3.5 g/dL (3.4-5.0); ALKALINE PHOSPHATASE 72 U/L (46-116); ASPARTATE AMNIOTRANSFERASE,AST 18 IU/L (15-37); BILIRUBIN TOTAL 0.7 mg/dL (0.2-1.0); BLOOD UREA NITROGEN,BUN 19 mg/dL (7.0-18.0); CALCIUM 8.9 mg/dL (8.5-10.1); CARBON DIOXIDE,CO2 24.4 mmol/L (21.0-32.0); CHLORIDE,CL 108 mmol/L (98-107); CREATININE 0.9 mg/dL (0.6-1.0); EST CRCL DRUG DOSING (CG) 40.45 mL/min; GLUCOSE RANDOM 100 mg/dL (74-106); POTASSIUM,K 4.2 mmol/L (3.5-5.1); PRO B-TYPE NATRIUR PEPT,BNPPRO 84 pg/mL (0-450); PROTEIN TOTAL,TP 6.6 g/dL (6.4-8.2); SODIUM,NA 141 mmol/L (136-145)
[2024-08-19 14:03] LABS: ESTIMATED GFR 61 mL/min (>60)
[2024-08-19] MEDS: Iopamidol 755 MG/ML 500 ML Multipack Bottle IVPUSH STA (14:53)
[2024-08-19] MEDS: cefTRIAXone 2 GM in Sodium Chloride 0.9% 50 ML IV ONE (15:30)
[2024-08-19 16:30] VITALS: BP 144/58; PULSE 60
== END 2024-08-19 16:44 | disposition home or self-care (01) ==
LOC: MW.ED 11:40
DX: R06.02 Shortness of breath (principal); N30.00 Acute cystitis without hematuria; I10 Essential (primary) hypertension; J44.9 Chronic obstructive pulmonary disease, unspecified; E78.00 Pure hypercholesterolemia, unspecified; E03.9 Hypothyroidism, unspecified; Z79.890 Hormone replacement therapy; Z79.899 Other long term (current) drug therapy
CPT/HCPCS: 36415; 71275; 80053; 81001; 83880; 84484; 85025; 87086; 87428; 93005; 96365; 99285; J0696; J3490; Q9967; 87088; 87186; 93010; 99283

== ENCOUNTER 2025-09-08 21:54 | Emergency (ER) | payer MEDICARE, BC ==
[2025-09-08] MEDS ORDERED: Sodium Chloride 0.9% 2.5 ML Syringe FLUSH PRN (22:35)
[2025-09-08] MEDS ORDERED: Sodium Chloride 0.9% 10 ML Syringe FLUSH PRN (22:35)
[2025-09-08 23:09] LABS: BASOPHILS ABSOLUTE AUTO 0.03 K/uL (0.00-0.20); BASOPHILS PERCENT AUTO 0.4 % (0.0-1.0); EOSINOPHILS ABSOLUTE AUTO 0.11 K/uL (0.00-0.45); EOSINOPHILS PERCENT AUTO 1.3 % (0.0-6.0); IMMATURE GRAN ABSOLUTE AUTO 0.01 K/uL (0.00-0.05); IMMATURE GRAN PERCENT AUTO 0.1 % (0.0-0.4); LYMPHOCYTES ABSOLUTE AUTO 3.18 K/uL (1.00-4.80); LYMPHOCYTES PERCENT AUTO 38.4 % (24.0-44.0); MEAN PLATELET VOLUME 10.2 fL (9.4-12.3); MONOCYTES ABSOLUTE AUTO 0.86 K/uL (0.00-0.80); MONOCYTES PERCENT AUTO 10.4 % (0.0-8.0); NEUTROPHILS ABSOLUTE AUTO 4.10 K/uL (1.80-7.70); NEUTROPHILS PERCENT AUTO 49.4 % (41.0-71.0); NRBC ABSOLUTE 0.00 K/uL (0.00-0.02); NRBC PERCENT 0.0 /100WBC (0.0-0.2); PLATELET COUNT,PLT 173 K/uL (150-400); RED BLOOD CELL COUNT 4.00 M/uL (4.10-5.30); WHITE BLOOD CELL COUNT,WBC 8.29 K/uL (3.9-11.3)
[2025-09-08 23:38] LABS: A/G RATIO 1.0 (0.9-1.6); ALANINE AMINOTRANSFERASE,ALT 23 IU/L (14-63); ASPARTATE AMNIOTRANSFERASE,AST 16 IU/L (15-37); BILIRUBIN TOTAL 0.6 mg/dL (0.2-1.0); BLOOD UREA NITROGEN,BUN 22 mg/dL (7.0-18.0); CARBON DIOXIDE,CO2 28.6 mmol/L (21.0-32.0); CHLORIDE,CL 108 mmol/L (98-107); CREATININE 1.0 mg/dL (0.6-1.0); GLUCOSE RANDOM 99 mg/dL (74-106); POTASSIUM,K 4.1 mmol/L (3.5-5.1); PROTEIN TOTAL,TP 6.8 g/dL (6.4-8.2); SODIUM,NA 142 mmol/L (136-145)
[2025-09-08 23:46] LABS: TSH ULTRASENSITIVE 0.66 uIU/mL (0.36-3.74)
[2025-09-08 23:53] LABS: ESTIMATED GFR 54 mL/min (>60)
[2025-09-09] MEDS: Iopamidol 755 MG/ML 500 ML Multipack Bottle IVPUSH ONE (00:50)
[2025-09-09 01:31] LABS: GLUCOSE,URINE NEGATIVE (NEGATIVE); OCCULT BLOOD,URINE NEGATIVE (NEGATIVE)
[2025-09-09 01:37] LABS: APPEARANCE,URINE HAZY
[2025-09-09 01:41] LABS: EPITHELIAL CELLS,URINE FEW (NONE-FEW)
[2025-09-09 02:10] VITALS: BP 142/60; PULSE 89
== END 2025-09-09 02:09 | disposition home or self-care (01) ==
LOC: MW.ED 21:54
DX: R00.2 Palpitations (principal); I10 Essential (primary) hypertension; E78.00 Pure hypercholesterolemia, unspecified; E03.9 Hypothyroidism, unspecified; Z79.890 Hormone replacement therapy; Z79.899 Other long term (current) drug therapy
CPT/HCPCS: 36415; 71045; 71275; 80053; 81001; 84443; 84484; 85025; 85379; 93005; 99285; A9270; Q9967; 93010; 99284